=== PATIENT | female | born 1990 | race Caucasian/White ===

== ENCOUNTER 2020-11-24 08:56 | Inpatient (IN) ==
--- NOTE | 2020-11-24 09:53 | Emergency Department Note ---
Impression & Plan Anxiety, PTSD (post-traumatic stress disorder) ED Provider Note NAME: AL LUNDBERG AGE: 30 SEX: F : 1990 ARRIVES VIA: Walk-In INFORMANT: Patient, ED PROVIDER(S): Anton Garcia DO CHIEF COMPLAINT: Anxiety HPI: The patient is a 30-year-old female who presented to the emergency department for an evaluation of generalized anxiety. The patient has very severe anxiety at times. She was seen in our facility recently for similar complaints. She has a history of PTSD. Initially she presented to the emergency department thinking that she had a reaction to one of her antidepression medications. The patient was stopped on her medications and at this time she is not taking any of her medications. She was feeling much better on reevaluation previously. She was able to be discharged to home I did not require inpatient treatment. She returns today because at her follow-up with the crisis center she was very anxious and was not able to participate in any kind of evaluation. They were very concerned for her mental health and her wellbeing so she was sent to the emergency department for further evaluation. At this time the patient states that she has had very little sleep. She has had very severe anxiety. She is noticed no suicidal or homicidal ideation. ROS: See above HPI for pertinent positives & negatives. A total of 10 systems reviewed and were otherwise negative. PAST MEDICAL HISTORY: See Below PAST SURGICAL HISTORY: See Below FAMILY HISTORY: See Below SOCIAL HISTORY: See Below HOME MEDICATIONS: See Below ALLERGIES: See Below VITALS: See Below PHYSICAL EXAMINATION: GENERAL: The patient is awake and alert. She is very anxious and guarded appearing. EYES: The conjunctivae are clear. The pupils are round and reactive. EARS, NOSE, MOUTH AND THROAT: The nose is without any evidence of any deformity. Mucous membranes are moist. Tongue is midline. NECK: The neck is nontender and supple. RESPIRATORY: Normal respiratory effort is noted there is no evidence of wheezing rhonchi or rales CARDIOVASCULAR: Regular rate and rhythm noted there no murmurs rubs or gallops normal S1 normal S2. GASTROINTESTINAL: The abdomen is soft. Abdomen is nontender. MUSCULOSKELETAL/EXTREMITIES: There is no evidence of gross deformity full range of motion is noted in the hips and shoulders. SKIN: There is no obvious evidence of any rash. There are no petechiae, pallor or cyanosis noted. NEUROLOGIC: Patient is awake alert and oriented x3 strength is symmetric patellar reflexes are 2+ bilaterally PSYCH: The patient makes very poor eye contact. She is very guarded and an xious. Currently she is denying any suicidal homicidal ideation. MEDICAL DECISION MAKING: The patient is a 30-year-old female who presented to the emergency department from the crisis center because she could not be properly evaluated there for her anxiety. The patient at this time has no suicidal homicidal ideation. She was medically cleared in the emergency department and at this time does not appear to meet criteria for inpatient treatment. The patient was evaluated by the mental health case management rn in the emergency department. She is feeling much better on reevaluation and has family members who will be with her. She was encouraged to follow-up with her therapist as scheduled. She was also encouraged to call crisis again or return the emergency department immediately if symptoms change worsen or the need arises. Once the patient was evaluated for discharge further history is obtained from the patient's friends. The patient has had much worsening symptoms over the last few days. When she was reevaluated by the mental health delegate it does appear that patient may benefit from inpatient management. Her anxiety appears to be very severe at times. Her friends are very concerned that she is not safe at home. For this reason a bed search is currently underway. Triage Nursing notes reviewed. Prior medical records reviewed Vital Signs: reviewed and remarkable for no significant abnormalities Differential diagnosis: Mood disorder, infection, hypoglycemia, electrolyte abnormalities, cardiac sources, intracerebral event, toxicologic, trauma, neurologic, as well as other pathologies. ER treatment provided: See below Diagnostics interpreted by me: ECG: none Laboratory studies: As stated above and show below. Imaging studies: See below Consultation(s): none Past Med/Surg History Medical History Anxiety Depression PTSD (post-traumatic stress disorder) Surgical History No significant past surgical history Social History Smoking Status: Never smoker Preferred Language: Serbian marital status: Single current occupational status: student Feels Safe at Home: Yes Allergies Allergies Allergy/AdvReac Type Severity Reaction Status Date / Time erythromycin base Allergy Unknown Verified 11/19/20 10:52 [From Pediazole] sulfisoxazole Allergy Unknown Verified 11/19/20 10:52 [From Pediazole] morphine AdvReac Nausea Verified 11/19/20 10:52 Home Meds Home Medications Medication Instructions Recorded Confirmed No Known Home Medications 11/24/20 11/24/20 Results & Data (ED) Vital Signs Vital Signs - 24 hr 11/24/20 09:02 Temperature 36.6 C Temperature Source Temporal Artery Scan Pulse Rate 86 Respiratory Rate 16 Blood Pressure 138/72 Blood Pressure Mean 94 Pulse Oximetry 97 Oxygen Delivery Method Room Air Sepsis Recent Fever Within 48 Hours No Sepsis New/Unexplained Change in Mental Status No Sepsis Action Taken by Nursing No Action Required Home Medications Current Medication List: was personally reviewed by me Laboratory Data Attestation: I reviewed the patient's lab results. Result diagrams: 11/24/20 09:49 11/24/20 09:49 Lab Results 11/24/20 11/24/20 11/24/20 Range/Units 09:49 09:49 09:49 WBC 6.38 (4.8-10.8) K/uL RBC 4.56 (4.2-5.4) M/uL Hgb 14.1 (12.0-16.0) g/dL Hct 40.6 (37-47) % MCV 89.0 (80-100) fL MCH 30.9 (25-34) pg MCHC 34.7 (32-36) g/dL RDW Std Deviation 39.5 (36.4-46.3) fL RDW Coeff of Daniel 12.3 (11.5-14.5) % Plt Count 253 (130-400) K/uL MPV 9.8 (7.4-10.4) fL Immature Gran % (Auto) 0.2 % Neut % (Auto) 70.7 % Lymph % (Auto) 21.5 % Woods % (Auto) 5.2 % Eos % (Auto) 2.4 % Baso % (Auto) 0.0 % Neut # (Auto) 4.52 (1.4-6.5) K/uL Lymph # (Auto) 1.37 (1.2-3.4) K/uL Woods # (Auto) 0.33 (0.11-0.59) K/uL Eos # (Auto) 0.15 (0-0.5) K/uL Baso # (Auto) 0.00 (0-0.2) K/uL Immature Gran # (Auto) 0.01 (0.00-0.02) K/uL Sodium 139 (136-145) mmol/L Potassium 3.1 L (3.5-5.1) mmol/L Chloride 105 (98-107) mmol/L Carbon Dioxide 25 (21-32) mmol/L Anion Gap 9.0 (3-11) BUN 5 L (7-18) mg/dl Creatinine 0.56 L (0.6-1.2) mg/dl Est Cr Clr Drug Dosing 131.9 ml/min Est GFR ( Amer) 145.0 Est GFR (Non-Af Amer) 125.1 BUN/Creatinine Ratio 9.3 L (10-20) Glucose 104 H (70-99) mg/dl Calcium 9.2 (8.5-10.1) mg/dl Total Bilirubin 0.8 (0.2-1) mg/dl AST 7 L (15-37) U/L ALT 18 (12-78) U/L Alkaline Phosphatase 35 L (45-117) U/L Total Protein 8.0 (6.4-8.2) gm/dl Albumin 4.6 (3.4-5.0) gm/dl Globulin 3.4 (2.5-4.0) gm/dl Albumin/Globulin Ratio 1.4 (0.9-2) TSH 0.438 (0.300-4.500) uIu/ml HCG, Qual (Negative) Urine Color Urine Appearance (Clear) Urine pH (4.5-7.5) Ur Specific [place] (1.000-1.030) Urine Protein (Negative) Urine Glucose (UA) (Negative) Urine Ketones (Negative) Urine Blood (Negative) Urine Nitrite (Negative) Urine Bilirubin (Negative) Urine Urobilinogen (Negative) Ur Leukocyte Esterase (Negative) Urine WBC (Auto) (0-5) /hpf Urine RBC (Auto) (0-4) /hpf U Hyaline Cast (Auto) (0-5) /lpf U Epithel Cells (Auto) (0-5) /lpf Urine Bacteria (Auto) (Negative) Salicylates < 1.7 L (2.8-20) mg/dl Urine Opiates Screen (Neg) Ur Methadone, Qual (Neg) Acetaminophen < 2 L (10-30) ug/ml Urine Barbiturates (Neg) Ur Phencyclidine (PCP) (Neg) U Amphetamin/Meth Scrn (Neg) MDMA (Ecstasy) Screen (Neg) U Benzodiazepines Scrn (Neg) Ur Cocaine Metabolite (Neg) U Marijuana (THC) Screen (Neg) Ethyl Alcohol mg/dL (0-3) mg/dl COVID-19 Eval Order SARS-CoV-2, RNA, NAAT (NEGATIVE) 11/24/20 11/24/20 11/24/20 Range/Units 09:49 09:49 11:05 WBC (4.8-10.8) K/uL RBC (4.2-5.4) M/uL Hgb (12.0-16.0) g/dL Hct (37-47) % MCV (80-100) fL MCH (25-34) pg MCHC (32-36) g/dL RDW Std Deviation (36.4-46.3) fL RDW Coeff of Daniel (11.5-14.5) % Plt Count (130-400) K/uL MPV (7.4-10.4) fL Immature Gran % (Auto) % Neut % (Auto) % Lymph % (Auto) % Woods % (Auto) % Eos % (Auto) % Baso % (Auto) % Neut # (Auto) (1.4-6.5) K/uL Lymph # (Auto) (1.2-3.4) K/uL Woods # (Auto) (0.11-0.59) K/uL Eos # (Auto) (0-0.5) K/uL Baso # (Auto) (0-0.2) K/uL Immature Gran # (Auto) (0.00-0.02) K/uL Sodium (136-145) mmol/L Potassium (3.5-5.1) mmol/L Chloride (98-107) mmol/L Carbon Dioxide (21-32) mmol/L Anion Gap (3-11) BUN (7-18) mg/dl Creatinine (0.6-1.2) mg/dl Est Cr Clr Drug Dosing ml/min Est GFR ( Amer) Est GFR (Non-Af Amer) BUN/Creatinine Ratio (10-20) Glucose (70-99) mg/dl Calcium (8.5-10.1) mg/dl Total Bilirubin (0.2-1) mg/dl AST (15-37) U/L ALT (12-78) U/L Alkaline Phosphatase (45-117) U/L Total Protein (6.4-8.2) gm/dl Albumin (3.4-5.0) gm/dl Globulin (2.5-4.0) gm/dl Albumin/Globulin Ratio (0.9-2) TSH (0.300-4.500) uIu/ml HCG, Qual Negative (Negative) Urine Color Yellow Urine Appearance Clear (Clear) Urine pH 7.5 (4.5-7.5) Ur Specific [place] 1.011 (1.000-1.030) Urine Protein Negative (Negative) Urine Glucose (UA) Negative (Negative) Urine Ketones 1+ H (Negative) Urine Blood Trace H (Negative) Urine Nitrite Negative (Negative) Urine Bilirubin Negative (Negative) Urine Urobilinogen Negative (Negative) Ur Leukocyte Esterase 3+ H (Negative) Urine WBC (Auto) 5-10 H (0-5) /hpf Urine RBC (Auto) 10-30 H (0-4) /hpf U Hyaline Cast (Auto) 1-5 (0-5) /lpf U Epithel Cells (Auto) >30 H (0-5) /lpf Urine Bacteria (Auto) Negative (Negative) Salicylates (2.8-20) mg/dl Urine Opiates Screen (Neg) Ur Methadone, Qual (Neg) Acetaminophen (10-30) ug/ml Urine Barbiturates (Neg) Ur Phencyclidine (PCP) (Neg) U Amphetamin/Meth Scrn (Neg) MDMA (Ecstasy) Screen (Neg) U Benzodiazepines Scrn (Neg) Ur Cocaine Metabolite (Neg) U Marijuana (THC) Screen (Neg) Ethyl Alcohol mg/dL < 3.0 (0-3) mg/dl COVID-19 Eval Order SARS-CoV-2, RNA, NAAT (NEGATIVE) 11/24/20 11/24/20 11/24/20 Range/Units 11:05 12:57 12:57 WBC (4.8-10.8) K/uL RBC (4.2-5.4) M/uL Hgb (12.0-16.0) g/dL Hct (37-47) % MCV (80-100) fL MCH (25-34) pg MCHC (32-36) g/dL RDW Std Deviation (36.4-46.3) fL RDW Coeff of Daniel (11.5-14.5) % Plt Count (130-400) K/uL MPV (7.4-10.4) fL Immature Gran % (Auto) % Neut % (Auto) % Lymph % (Auto) % Woods % (Auto) % Eos % (Auto) % Baso % (Auto) % Neut # (Auto) (1.4-6.5) K/uL Lymph # (Auto) (1.2-3.4) K/uL Woods # (Auto) (0.11-0.59) K/uL Eos # (Auto) (0-0.5) K/uL Baso # (Auto) (0-0.2) K/uL Immature Gran # (Auto) (0.00-0.02) K/uL Sodium (136-145) mmol/L Potassium (3.5-5.1) mmol/L Chloride (98-107) mmol/L Carbon Dioxide (21-32) mmol/L Anion Gap (3-11) BUN (7-18) mg/dl Creatinine (0.6-1.2) mg/dl Est Cr Clr Drug Dosing ml/min Est GFR ( Amer) Est GFR (Non-Af Amer) BUN/Creatinine Ratio (10-20) Glucose (70-99) mg/dl Calcium (8.5-10.1) mg/dl Total Bilirubin (0.2-1) mg/dl AST (15-37) U/L ALT (12-78) U/L Alkaline Phosphatase (45-117) U/L Total Protein (6.4-8.2) gm/dl Albumin (3.4-5.0) gm/dl Globulin (2.5-4.0) gm/dl Albumin/Globulin Ratio (0.9-2) TSH (0.300-4.500) uIu/ml HCG, Qual (Negative) Urine Color Urine Appearance (Clear) Urine pH (4.5-7.5) Ur Specific [place] (1.000-1.030) Urine Protein (Negative) Urine Glucose (UA) (Negative) Urine Ketones (Negative) Urine Blood (Negative) Urine Nitrite (Negative) Urine Bilirubin (Negative) Urine Urobilinogen (Negative) Ur Leukocyte Esterase (Negative) Urine WBC (Auto) (0-5) /hpf Urine RBC (Auto) (0-4) /hpf U Hyaline Cast (Auto) (0-5) /lpf U Epithel Cells (Auto) (0-5) /lpf Urine Bacteria (Auto) (Negative) Salicylates (2.8-20) mg/dl Urine Opiates Screen Neg (Neg) Ur Methadone, Qual Neg (Neg) Acetaminophen (10-30) ug/ml Urine Barbiturates Neg (Neg) Ur Phencyclidine (PCP) Neg (Neg) U Amphetamin/Meth Scrn Neg (Neg) MDMA (Ecstasy) Screen Neg (Neg) U Benzodiazepines Scrn Neg (Neg) Ur Cocaine Metabolite Neg (Neg) U Marijuana (THC) Screen Neg (Neg) Ethyl Alcohol mg/dL (0-3) mg/dl COVID-19 Eval [facility] SARS-CoV-2, RNA, NAAT NEGATIVE (NEGATIVE) Blood Pressure Blood Pressure Findings: Normal blood pressure Discharge Plan Visit Data Chief Complaint: Mental Health Evaluation Stated Complaint: MENTAL HEALTH EMERGENCY ED Provider: Anton Garcai Discharge Problem: Anxiety, PTSD (post-traumatic stress disorder) Patient Disposition: Home - Self-Care Condition: Good Discharge Instructions Esteban/Other Patient Handouts: ED Anxiety Reaction Activity Restrictions/Additional Instructions: Follow-up with your therapist as scheduled. Call crisis or return to the emergency department immediately if symptoms change worsen or the need arises. Forms Stand Alone Forms: My [facility] [place] [employer], Suicide Prevention Resources, Virtual Emergency Department, Important Visit Information Prescriptions Prescriptions: No Action No Known Home Medications RF: 0 Referrals [facility]: [facility] [Primary Care Provider] -
[2020-11-24 10:32] LABS: Eosinophils # (auto) 0.15 K/uL (0-0.5); Eosinophils % (auto) 2.4 %; Hematocrit (blood only) 40.6 % (37-47); Hemoglobin 14.1 g/dL (12.0-16.0); Immature Granulocytes # (auto) 0.01 K/uL (0.00-0.02); Immature Granulocytes % (auto) 0.2 %; Lymphocytes # (auto) 1.37 K/uL (1.2-3.4); Lymphocytes % (auto) 21.5 %; Mean Corpuscular Hemoglobin 30.9 pg (25-34); Mean Corpuscular Hgb Conc 34.7 g/dL (32-36); Mean Platelet Volume 9.8 fL (7.4-10.4); Monocytes # (auto) 0.33 K/uL (0.11-0.59); Monocytes % (auto) 5.2 %; Neutrophils # (auto) 4.52 K/uL (1.4-6.5); Neutrophils % (auto) 70.7 %; Platelet Count 253 K/uL (130-400); RDW Coefficient of Variation 12.3 % (11.5-14.5); RDW Standard Deviation 39.5 fL (36.4-46.3); Red Blood Count 4.56 M/uL (4.2-5.4); White Blood Count 6.38 K/uL (4.8-10.8)
[2020-11-24 10:49] LABS: Albumin Level 4.6 gm/dl (3.4-5.0); BUN Creatinine Ratio 9.3 (10-20); Calcium 9.2 mg/dl (8.5-10.1); Creatinine Clr Calc Pharmacy 131.9 ml/min; Est GFR (Non-African American) 125.1; Potassium 3.1 mmol/L (3.5-5.1)
[2020-11-24 10:53] LABS: Pregnancy Test, Serum Negative (Negative)
[2020-11-24 10:54] LABS: Acetaminophen < 2 ug/ml (10-30); Salicylate < 1.7 mg/dl (2.8-20)
[2020-11-24 10:57] LABS: Albumin Globulin Ratio 1.4 (0.9-2); Bilirubin,Total 0.8 mg/dl (0.2-1); Globulin 3.4 gm/dl (2.5-4.0); Thyroid Stimulating Hormone 0.438 uIu/ml (0.300-4.500)
[2020-11-24 11:18] LABS: Appearance Urine Clear (Clear); Bacteria Urine Automated Negative (Negative); Bilirubin Urine Negative (Negative); Blood Urine Trace (Negative); Color Urine Yellow; Epithelial Cell Urine Auto >30 /lpf (0-5); Glucose Urine UA Negative (Negative); Ketones Urine 1+ (Negative); Leukocyte Esterase Urine 3+ (Negative); Nitrite Urine Negative (Negative); Protein Urine Negative (Negative); Specific Gravity Urine 1.011 (1.000-1.030); Urobilinogen Urine Negative (Negative); pH Urine 7.5 (4.5-7.5)
[2020-11-24 11:45] LABS: Amphetamines+Metham, Urine Neg (Neg); Barbiturates, Urine Neg (Neg); Benzodiazepine, Urine Neg (Neg); Cocaine, Urine Neg (Neg); MDMA (Ecstacy), Urine Neg (Neg); Methadone, Urine Neg (Neg); Opiate, Urine Neg (Neg); Phencyclidine, Urine Neg (Neg)
[2020-11-24] MEDS ORDERED: POTASSIUM CHLORIDE CRTAB 20 MEQ TABCR PO STA (14:03)
[2020-11-24] MEDS ORDERED: ALUMINUM/MAGNESIUM SUSP 30 ML UDC PO PRN ×2 (15:04→15:20)
[2020-11-24] MEDS ORDERED: SODIUM CHLORIDE 0.65% NA SOLN 45 ML (OCEAN) PRN ×2 (15:04→15:20)
[2020-11-24] MEDS ORDERED: MAGNESIUM HYDROXIDE SUSP 30 ML UDC PO PRN ×2 (15:04→15:20)
[2020-11-24] MEDS ORDERED: hydrOXYzine HCl 25 MG TAB PO PRN ×3 (15:04→15:20)
[2020-11-24] MEDS ORDERED: ACETAMINOPHEN 325 MG TAB PO PRN ×2 (15:04→15:20)
[2020-11-24] MEDS ORDERED: BISMUTH SUBSALICYLATE LIQD 236 ML PO PRN ×2 (15:04→15:20)
--- NOTE | 2020-11-24 15:23 | Emergency Department Note ---
ED Visit Note Received patient in signout. History and physical verified by me. Patient has been accepted to [address] signed. .
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
[2020-11-25] MEDS: hydrOXYzine HCl 25 MG TAB PO PRN ×2 (03:46→04:35)
--- NOTE | 2020-11-25 13:19 | Psychiatric Progress Note ---
Date of Service November 25, 2020 Impression / Recommendations Impression 30-year-old biologically female individual who identifies as non-binary and prefers 'they/they/their' pronouns. They were admitted voluntarily for inpatient psychiatric treatment on 11/24/2020 after presenting to the ED for the third time in 7-days for reports of worsening anxiety and inability to function. Pt had reportedly been to the [facility] for a follow-up crisis appointment, but when unable to tolerate the assessment due to severe anxiety they were referred to the ED for possible admission. Friends have reported concern for the patient's worsening symptoms and patient was ultimately willing for admission to our unit. The patient states that they were prescribed escitalopram ~2015, stated they had a positive response in the ED but is now stating they are uncertain how they responded. Nonetheless, the patient states they do not want to retry medication during this admission. Pt is felt to be too anxious to engage in psychoeducation on this at this time, but will continue to encourage considerat ion for an SSRI. Pt will be encouraged to participate in group and recreational programming. They will be encouraged to have a support meeting via phone to discuss safety and discharge planning. Pt is considered to be at acute risk of harm to self if discharged prematurely, as their presentation suggests they are not able to tolerate the stress of community re-entry. 11/25--reviewed. Today the patient exhibits thought blocking, disorganized behavior on unit, and expresses multiple delusions including body control, persecutory delusions of poison, etc. (1) Anxiety: 11/24 - Admitted to a locked inpatient behavioral health unit, on q15 minute safety checks - Pt is declining trial of any psychotropic medications during this admission - will continue to offer education and encouragement - Encourage participation in group and recreational therapies - Gather collateral information from outpatient providers - Suggest phone meeting to involve outpatient supports in safety planning - Arrange appropriate aftercare 11/25--reviewed, is actually related to underlying psychosis/paranoia. (2) Depression: 11/24 - Same as above; patient declining medications during her admission - Encourage participation in group and recreational programming - Encourage support meeting - likely with brother 11/25--reviewed. may need to delay d/c to brother as ongoing decompensation. (3) PTSD (post-traumatic stress disorder): 11/24 - Coping strategies at this time - though continue to encourage consideration of medications - Encourage continued outpatient therapy 11/25--reviewed, Reviewed with patient that this is beyond dissociation as they do not just believe that things are unreal, but list multiple unusual beliefs and things that are harmful to them as punishment for losing healing mcnair. (4) Hypokalemia: 11/24 - Potassium was 3.1 in the ED, repleted with 20mEq of potassium chloride - Monitor nutritional intake on the unit, consider repeat BMP if indicated 11/25--reviewed. (5) Psychotic disorder: Risks/benefits/alternatives reviewed re: Seroquel 50 mg po q6 hr prn and decide on hs dose depending on tolerability. They were really not able to process full consent at this time. Will address as status improved. They verbalized agreement to trial. metabolic labs in am. Protective Factors Assessment Employed: No Interval History Chief Complaint "It's hard for me to say it out loud as I'm pretty sure I'm being poisoned and watched". Review of Systems Sleep Information Total Hours of Sleep: 1.5 Meal Information Percent Meal Consumed - Breakfast: 50 Percent Meal Consumed - Dinner: 100 Subjective Subjective Patient was seen & assessed and interval progress reviewed with nursing and social work. Patient has been rather guarded. Will wander and shuffle around, perceived to be in an attention seeking manner. At one point early this am when couldn't sleep they lay on the ottoman in the day room and had some jerking movements of hands/neck for <10 sec that did not appear to be related to seizure activity. Is flat, had difficulty completing sw assessment as seemed confused by number of pens. They initially attributed her confusion to Vistaril last hs and/or their "nightmarish dissociation". They stated that they have times they feel this hospital is not real and that they and staff are being controlled by an outside force. Sometimes they would refer to eastern religions and their own healing mcnair while repeatedly looking down at their arms. They denied urge to self injure, stated they were being punished or poisoned for using their mcnair for bad but could not elaborate on that. They stated that they believe that someone is inside them seeing things out of their eyes, probably the ALDEN and that's why their apartment is "under construction". They described upstairs and downstairs construction work causing poisonous gas and asbestos to go in through the vent in their apartment. They stated that they've carried this anxiety for weeks but didn't tell anyone as they didn't think they'd believe them. Again when asked about the "they" who are poisoning them they mentioned the ALDEN and then also mentioned that it's likely the medication they took for anxiety was poison. They stated that the hospital is overstimulating for them as so many "staff to track" and they are suspicious as to why some of the staff change their nametags around/backward as if they are also being controlled. Initially they were resistant to medication but recognizes that "things are only getting worse" with lack of sleep and they requested to be "put out" (to sleep, not SI). Physical Exam Psychiatric Orientation: alert Apperance: + disheveled Eye Contact: + poor eye contact Motor Behavior: + psychomotor retardation and + tremor (hand when looking directly at them) Speech: normal rate/rhythm/volume of speech Affect: + depressed affect and + tearful affect Mood: + anxious mood Thought Process: + tangential thought process Thought Content: + paranoid, + delusions and + persecution Suicidal Thoughts: denies suicidal thoughts Homicidal Thoughts: denies homicidal thoughts Hallucinations: no auditory hallucinations and no visual hallucinations Cognition: + attention not intact Estimated Intelligence: consistent with education level Insight: + poor insight Judgement: + poor judgement Vital Signs (Past 24 Hours) Last Vital Signs Temp 36.9 C 11/25/20 06:34 Pulse 75 11/25/20 11:12 Resp 20 11/25/20 11:12 BP 118/82 11/25/20 11:12 Pulse Ox 96 11/25/20 11:12 Results & Data ([facility]) Laboratory Results Laboratory Results - last 24 hr 11/24/20 11/24/20 12:57 12:57 COVID-19 Eval Order Covid19 IDNow [facility] SARS-CoV-2, RNA, NAAT NEGATIVE Current Inpatient Medications Current Inpatient Medications: Current Inpatient Medications Acetaminophen (Acetaminophen 325 Mg Tab) 650 mg PO Q4H PRN PRN Reason: Headache or Minor Fever Stop: 12/24/20 15:19 Al Hydrox/Mg Hydrox/Simethicone (Aluminum/Magnesium Susp 30 Ml Udc) 30 ml PO Q4H PRN PRN Reason: GI Upset Stop: 12/24/20 15:19 Bismuth Subsalicylate (Bismuth Subsalicylate Liqd 236 Ml) 15 ml PO PRN PRN PRN Reason: Loose Stool Stop: 12/24/20 15:19 Magnesium Hydroxide (Magnesium Hydroxide Susp 30 Ml Udc) 30 ml PO DAILY PRN PRN Reason: Constipation Stop: 12/24/20 15:19 Quetiapine Fumarate (Quetiapine Fumarate 25 Mg Tablet) 50 mg PO Q6 PRN PRN Reason: Anxiety/Insomnia Stop: 12/25/20 17:59 Sodium Chloride (Sodium Chloride 0.65% Na Soln 45 Ml ([place])) 1 - 2 sprays NA PRN PRN PRN Reason: Nasal Dryness/Congestion Stop: 12/24/20 15:19 Mental Health & Subst Abuse Tx Therapist Name of Therapist: Natalia العلي @[facility] - had one appointment with this provider Post Discharge Appointments Primary Care Physician Name Of Family Doctor: Florentino Negrete @[facility] (missed this appt. as pt. came to the hospital today)
[2020-11-25] MEDS: QUEtiapine FUMARATE 25 MG TABLET PO PRN ×2 (14:08→21:08)
[2020-11-26 09:15] LABS: Potassium 3.6 mmol/L (3.5-5.1)
--- NOTE | 2020-11-26 14:25 | Psychiatric Progress Note ---
Date of Service November 26, 2020 Impression / Recommendations Impression 30-year-old biologically female individual who identifies as non-binary and prefers 'they/they/their' pronouns. They were admitted voluntarily for inpatient psychiatric treatment on 11/24/2020 after presenting to the ED for the third time in 7-days for reports of worsening anxiety and inability to function. Pt had reportedly been to the [facility] for a follow-up crisis appointment, but when unable to tolerate the assessment due to severe anxiety they were referred to the ED for possible admission. Friends have reported concern for the patient's worsening symptoms and patient was ultimately willing for admission to our unit. The patient states that they were prescribed escitalopram ~2015, stated they had a positive response in the ED but is now stating they are uncertain how they responded. Nonetheless, the patient states they do not want to retry medication during this admission. Pt is felt to be too anxious to engage in psychoeducation on this at this time, but will continue to encourage considerat ion for an SSRI. Pt will be encouraged to participate in group and recreational programming. They will be encouraged to have a support meeting via phone to discuss safety and discharge planning. Pt is considered to be at acute risk of harm to self if discharged prematurely, as their presentation suggests they are not able to tolerate the stress of community re-entry. 11/25--reviewed. Today the patient exhibits thought blocking, disorganized behavior on unit, and expresses multiple delusions including body control, persecutory delusions of poison, etc. 11/26--a bit calmer following 2 doses of Seroquel yesterday, still suspicious and misattributes paperwork and menu to delusional system. (1) Anxiety: 11/24 - Admitted to a locked inpatient behavioral health unit, on q15 minute safety checks - Pt is declining trial of any psychotropic medications during this admission - will continue to offer education and encouragement - Encourage participation in group and recreational therapies - Gather collateral information from outpatient providers - Suggest phone meeting to involve outpatient supports in safety planning - Arrange appropriate aftercare 11/25--reviewed, is actually related to underlying psychosis/paranoia. (2) Depression: 11/24 - Same as above; patient declining medications during her admission - Encourage participation in group and recreational programming - Encourage support meeting - likely with brother 11/25--reviewed. may need to delay d/c to brother as ongoing decompensation. (3) PTSD (post-traumatic stress disorder): 11/24 - Coping strategies at this time - though continue to encourage consideration of medications - Encourage continued outpatient therapy 11/25--reviewed, Reviewed with patient that this is beyond dissociation as they do not just believe that things are unreal, but list multiple unusual beliefs and things that are harmful to them as punishment for losing healing mcnair. (4) Hypokalemia: 11/24 - Potassium was 3.1 in the ED, repleted with 20mEq of potassium chloride - Monitor nutritional intake on the unit, consider repeat BMP if indicated 11/25--reviewed. 11/26--repeat 3.6. (5) Psychotic disorder: 11/25--Risks/benefits/alternatives reviewed re: Seroquel 50 mg po q6 hr prn and decide on hs dose depending on tolerability. They were really not able to process full consent at this time. Will address as status improved. They verbalized agreement to trial. metabolic labs in am. 11/26--agreed to increase Seroquel 100 mg po qhs. Protective Factors Assessment Employed: No Interval History Chief Complaint "I shouldn't have told you all that stuff, now my menu is changed.". Review of Systems Sleep Information Total Hours of Sleep: 3.5 Meal Information Percent Meal Consumed - Breakfast: 100 Percent Meal Consumed - Lunch: 75 Percent Meal Consumed - Dinner: 50 Subjective Subjective Patient was seen & assessed and interval progress reviewed with nursing and social work. Patient states they slept "a bit" and feel anxious yet on some level calmer today as know brother is on his way. Still unable to fill out simple forms like rec assessment due to disorganization and blocking. Had to leave group due to ?paranoia. Very upset that her vegetarian menu is different than yesterday so they believe it's a punishment. Physical Exam Psychiatric Orientation: alert and oriented x 3 Apperance: appropriately dressed and appropriately groomed Eye Contact: + fair eye contact (frequently closing eyes to conduct deep breathing exercises) Motor Behavior: steady gait and station Speech: normal rate/rhythm/volume of speech Affect: + depressed affect and + anxious affect Mood: + anxious mood Thought Process: + tangential thought process Thought Content: + paranoid and + delusions Suicidal Thoughts: denies suicidal thoughts Homicidal Thoughts: denies homicidal thoughts Hallucinations: no auditory hallucinations and no visual hallucinations Cognition: language grossly intact; + attention not intact Estimated Intelligence: consistent with education level and + above average estimated intelligence Insight: + impaired insight Judgement: + impaired judgement Vital Signs (Past 24 Hours) Last Vital Signs Temp 36.7 C 11/26/20 06:39 Pulse 114 H 11/26/20 06:39 Resp 16 11/26/20 06:39 BP 124/83 11/26/20 06:39 Pulse Ox 96 11/25/20 11:12 Results & Data ([facility]) Laboratory Results Laboratory Results - last 24 hr 11/26/20 08:21 Potassium 3.6 D Fasting Glucose 101 H Triglycerides 42 Cholesterol 153 LDL Cholesterol, Calc 87 VLDL Cholesterol, Calc 8 HDL Cholesterol 58 Cholesterol/HDL Ratio 3 Current Inpatient Medications Current Inpatient Medications: Current Inpatient Medications Acetaminophen (Acetaminophen 325 Mg Tab) 650 mg PO Q4H PRN PRN Reason: Headache or Minor Fever Stop: 12/24/20 15:19 Al Hydrox/Mg Hydrox/Simethicone (Aluminum/Magnesium Susp 30 Ml Udc) 30 ml PO Q4H PRN PRN Reason: GI Upset Stop: 12/24/20 15:19 Bismuth Subsalicylate (Bismuth Subsalicylate Liqd 236 Ml) 15 ml PO PRN PRN PRN Reason: Loose Stool Stop: 12/24/20 15:19 Magnesium Hydroxide (Magnesium Hydroxide Susp 30 Ml Udc) 30 ml PO DAILY PRN PRN Reason: Constipation Stop: 12/24/20 15:19 Quetiapine Fumarate (Quetiapine Fumarate 25 Mg Tablet) 50 mg PO Q6 PRN PRN Reason: Anxiety/Insomnia Stop: 12/25/20 17:59 Last Admin: 11/25/20 21:08 Dose: 50 mg Documented by: Quetiapine Fumarate (Quetiapine Fumarate 100 Mg Tablet) 100 mg PO HS VENICE Stop: 12/26/20 21:59 Sodium Chloride (Sodium Chloride 0.65% Na Soln 45 Ml ([place])) 1 - 2 sprays NA PRN PRN PRN Reason: Nasal Dryness/Congestion Stop: 12/24/20 15:19 Mental Health & Subst Abuse Tx Therapist Name of Therapist: Natalia Vences Post Discharge Appointments Primary Care Physician Name Of Family Doctor: Florentino Negrete @[facility] (missed this appt. as pt. came to the hospital today)
[2020-11-26] MEDS ORDERED: INFLUENZA VIRUS QUAD VACCINE 0.5 ML SYR IM ONE (14:26)
[2020-11-26] MEDS ORDERED: INFLUENZA ADMINISTRATION CHARGE ONE (14:26)
[2020-11-26] MEDS: QUEtiapine FUMARATE 100 MG TABLET PO SCH (20:35)
--- NOTE | 2020-11-27 13:08 | Psychiatric Progress Note ---
Date of Service November 27, 2020 Impression / Recommendations Impression 30-year-old biologically female individual who identifies as non-binary and prefers 'they/they/their' pronouns. They were admitted voluntarily for inpatient psychiatric treatment on 11/24/2020 after presenting to the ED for the third time in 7-days for reports of worsening anxiety and inability to function. Pt had reportedly been to the [facility] for a follow-up crisis appointment, but when unable to tolerate the assessment due to severe anxiety they were referred to the ED for possible admission. Friends have reported concern for the patient's worsening symptoms and patient was ultimately willing for admission to our unit. The patient states that they were prescribed escitalopram ~2015, stated they had a positive response in the ED but is now stating they are uncertain how they responded. Nonetheless, the patient states they do not want to retry medication during this admission. Pt is felt to be too anxious to engage in psychoeducation on this at this time, but will continue to encourage considerat ion for an SSRI. Pt will be encouraged to participate in group and recreational programming. They will be encouraged to have a support meeting via phone to discuss safety and discharge planning. Pt is considered to be at acute risk of harm to self if discharged prematurely, as their presentation suggests they are not able to tolerate the stress of community re-entry. 11/25--reviewed. Today the patient exhibits thought blocking, disorganized behavior on unit, and expresses multiple delusions including body control, persecutory delusions of poison, etc. 11/26--a bit calmer following 2 doses of Seroquel yesterday, still suspicious and misattributes paperwork and menu to delusional system. 11/27--dramatic improvement from 11/25. (1) Anxiety: 11/24 - Admitted to a locked inpatient behavioral health unit, on q15 minute safety checks - Pt is declining trial of any psychotropic medications during this admission - will continue to offer education and encouragement - Encourage participation in group and recreational therapies - Gather collateral information from outpatient providers - Suggest phone meeting to involve outpatient supports in safety planning - Arrange appropriate aftercare 11/25--reviewed, is actually related to underlying psychosis/paranoia. (2) Depression: 11/24 - Same as above; patient declining medications during her admission - Encourage participation in group and recreational programming - Encourage support meeting - likely with brother 11/25--reviewed. may need to delay d/c to brother as ongoing decompensation. (3) PTSD (post-traumatic stress disorder): 11/24 - Coping strategies at this time - though continue to encourage consideration of medications - Encourage continued outpatient therapy 11/25--reviewed, Reviewed with patient that this is beyond dissociation as they do not just believe that things are unreal, but list multiple unusual beliefs and things that are harmful to them as punishment for losing healing mcnair. (4) Hypokalemia: 11/24 - Potassium was 3.1 in the ED, repleted with 20mEq of potassium chloride - Monitor nutritional intake on the unit, consider repeat BMP if indicated 11/25--reviewed. 11/26--repeat 3.6. (5) Psychotic disorder: 11/25--Risks/benefits/alternatives reviewed re: Seroquel 50 mg po q6 hr prn and decide on hs dose depending on tolerability. They were really not able to process full consent at this time. Will address as status improved. They verbalized agreement to trial. metabolic labs in am. 11/26--agreed to increase Seroquel 100 mg po qhs. 11/27--continue Seroquel current dose. Patient's psychosis likely mood driven but differential includes first break, fact symptoms worsened on brief SSRI trial may suggest bipolar component. Protective Factors Assessment Employed: No Interval History Chief Complaint "wow I'm really starting to see how messed up my thoughts were.". Review of Systems Sleep Information Total Hours of Sleep: 7.5 Meal Information Percent Meal Consumed - Breakfast: 75 Percent Meal Consumed - Lunch: 75 Percent Meal Consumed - Dinner: 50 Subjective Subjective Patient was seen & assessed and interval progress reviewed with treatment team. They were accepting of medication last pm. They c/o of some sedation but also states their body feels calm for the first time in weeks and that their thoughts are starting to slow down. They are able to attend groups and is able to write in their journal in a more meaningful and organized way. They state that they remembers "everything that's happened" here but clearly has some gaps in being able to verbalize. They remember talking about their delusions about healing and being poisoned but stops short on saying it's not true. They slept through the night for the first time and was up attending to ADLs by 8 am. Physical Exam Psychiatric Orientation: alert Apperance: appropriately groomed Eye Contact: good eye contact Motor Behavior: steady gait and station Speech: normal rate/rhythm/volume of speech Affect: euthymic affect Mood: + anxious mood Thought Process: + circumstantial thought process Thought Content: + delusions Suicidal Thoughts: denies suicidal thoughts Homicidal Thoughts: denies homicidal thoughts Hallucinations: no auditory hallucinations and no visual hallucinations Cognition: attention grossly intact and language grossly intact Insight: + poor insight Judgement: + poor judgement Vital Signs (Past 24 Hours) Last Vital Signs Temp 36.3 C L 11/27/20 06:47 Pulse 97 H 11/27/20 06:47 Resp 16 11/27/20 06:47 BP 129/81 11/27/20 06:47 Pulse Ox 96 11/25/20 11:12 Results & Data ([facility]) Current Inpatient Medications Current Inpatient Medications: Current Inpatient Medications Acetaminophen (Acetaminophen 325 Mg Tab) 650 mg PO Q4H PRN PRN Reason: Headache or Minor Fever Stop: 12/24/20 15:19 Al Hydrox/Mg Hydrox/Simethicone (Aluminum/Magnesium Susp 30 Ml Udc) 30 ml PO Q4H PRN PRN Reason: GI Upset Stop: 12/24/20 15:19 Bismuth Subsalicylate (Bismuth Subsalicylate Liqd 236 Ml) 15 ml PO PRN PRN PRN Reason: Loose Stool Stop: 12/24/20 15:19 Magnesium Hydroxide (Magnesium Hydroxide Susp 30 Ml Udc) 30 ml PO DAILY PRN PRN Reason: Constipation Stop: 12/24/20 15:19 Quetiapine Fumarate (Quetiapine Fumarate 25 Mg Tablet) 50 mg PO Q6 PRN PRN Reason: Anxiety/Insomnia Stop: 12/25/20 17:59 Last Admin: 11/25/20 21:08 Dose: 50 mg Documented by: Quetiapine Fumarate (Quetiapine Fumarate 100 Mg Tablet) 100 mg PO HS VENICE Stop: 12/26/20 21:59 Last Admin: 11/26/20 20:35 Dose: 100 mg Documented by: Sodium Chloride (Sodium Chloride 0.65% Na Soln 45 Ml ([place])) 1 - 2 sprays NA PRN PRN PRN Reason: Nasal Dryness/Congestion Stop: 12/24/20 15:19 Mental Health & Subst Abuse Tx Therapist Name of Therapist: [place] - Dr. Natalia العلي Therapist's ext [phone] [facility] App[facility]ment Comment[facility] [address] [facility] [place] [address] Assistant Professor Surgical Technology Name of Assistant Professor Surgical Technology: none Post Discharge Appointments Primary Care Physician Name Of Family Doctor: LSIETTE Negrete Primary Care Provider Appointment Comment: [facility] Contact Information Discharge Discharge Address: [address] [place] [address], [place], [place]
[2020-11-27] MEDS: QUEtiapine FUMARATE 100 MG TABLET PO SCH (22:20)
--- NOTE | 2020-11-28 10:02 | Psychiatric Progress Note ---
Date of Service November 28, 2020 Impression / Recommendations Impression 30-year-old biologically female individual who identifies as non-binary and prefers 'they/they/their' pronouns. They were admitted voluntarily for inpatient psychiatric treatment on 11/24/2020 after presenting to the ED for the third time in 7-days for reports of worsening anxiety and inability to function. Pt had reportedly been to the [facility] for a follow-up crisis appointment, but when unable to tolerate the assessment due to severe anxiety they were referred to the ED for possible admission. Friends have reported concern for the patient's worsening symptoms and patient was ultimately willing for admission to our unit. The patient states that they were prescribed escitalopram ~2015, stated they had a positive response in the ED but is now stating they are uncertain how they responded. Pt initially stated they did not want to retry medication during this admission, but eventually was willing to take as needed dose of quetiapine for what appeared to be more psychotic symptoms earlier in the stay. The patient is tolerating 100mg doses each evening with reported benefit. Anxious presentation is much improved, though still present. Pt does not appear to be grossly psychotic or demonstrating paranoia today. Pt has been willing to participate in group and recreational programming. They had a support meeting via phone with their brother to discuss safety and discharge planning. Pt still requires aftercare arrangements be solidified given the severity of condition on admission and concern for transition to [place]. Pt is hopeful for discharge tomorrow - planning to take a leave of absence from school and live with their brother. (1) Anxiety: 11/24 - Admitted to a locked inpatient behavioral health unit, on q15 minute safety checks - Pt is declining trial of any psychotropic medications during this admission - will continue to offer education and encouragement - Encourage participation in group and recreational therapies - Gather collateral information from outpatient providers - Suggest phone meeting to involve outpatient supports in safety planning - Arrange appropriate aftercare 11/25--reviewed, is actually related to underlying psychosis/paranoia. Today the patient exhibits thought blocking, disorganized behavior on unit, and expresses multiple delusions including body control, persecutory delusions of poison, etc. 11/26--a bit calmer following 2 doses of Seroquel yesterday, still suspicious and misattributes paperwork and menu to delusional system. 11/27--dramatic improvement from 11/25. 11/28--Pt continues to demonstrate improvement in condition. Perspective from this provider is a remarkable improvement in anxiety since our first and only meeting on 11/24. Pt continues to be a bit obsessive with need to write down information, but does not demonstrate paranoia or delusions during our encounter. (2) Depression: 11/24 - Same as above; patient declining medications during her admission - Encourage participation in group and recreational programming - Encourage support meeting - likely with brother 11/25--reviewed. may need to delay d/c to brother as ongoing decompensation. 11/28 - Pt continues to demonstrate significant improvement in mood and anxiety - still requires that aftercare arrangements be made given transition back to [place]. Pt is hopeful for discharge tomorrow. (3) PTSD (post-traumatic stress disorder): 11/24 - Coping strategies at this time - though continue to encourage consideration of medications - Encourage continued outpatient therapy 11/25--reviewed, Reviewed with patient that this is beyond dissociation as they do not just believe that things are unreal, but list multiple unusual beliefs and things that are harmful to them as punishment for losing healing mcnair. (4) Hypokalemia: 11/24 - Potassium was 3.1 in the ED, repleted with 20mEq of potassium chloride - Monitor nutritional intake on the unit, consider repeat BMP if indicated 11/25--reviewed. 11/26--repeat 3.6. (5) Psychotic disorder: 11/25--Risks/benefits/alternatives reviewed re: Seroquel 50 mg po q6 hr prn and decide on hs dose depending on tolerability. They were really not able to process full consent at this time. Will address as status improved. They verbalized agreement to trial. metabolic labs in am. 11/26--agreed to increase Seroquel 100 mg po qhs. 11/27--continue Seroquel current dose. Patient's psychosis likely mood driven but differential includes first break, fact symptoms worsened on brief SSRI trial may suggest bipolar component. 11/28 - Continue quetiapine at current dose of 100mg qHS - patient tolerating medication, but declining further increase. Perspective from this provider is a remarkable improvement in anxiety since our first and only previous meeting on 11/24. Pt continues to be a bit obsessive in her need to write down information, but does not demonstrate paranoia or delusions during our encounter. Protective Factors Assessment Employed: No Interval History Identifying Information AL LUNDBERG is a 30-year-old biologically female individual who identifies as non-binary. Pt prefers "they/them/their" pronouns per report. Pt currently lives in [place] and endorses a history of anxiety, depression, and PTSD, and was admitted on 11/24/2020 on a 201 voluntary commitment for anxiety and inability to function outside of the hospital setting. Chief Complaint "I'm doing much better. I have been able to sleep, which is great." Review of Systems Notes Constitutional: reports an episode of "cold sweats" last evening, now resolved; improved sleep Cardiovascular: denied Respiratory: denied Gastrointestinal: denied Neurological: denied Psychiatric: denies symptoms other than stated above Total of at least 10 systems reviewed, pertinent positives as above and in HPI. Sleep Information Total Hours of Sleep: 6.5 Meal Information Percent Meal Consumed - Breakfast: 90 Percent Meal Consumed - Lunch: 75 Percent Meal Consumed - Dinner: 75 Subjective Subjective Patient was seen & assessed and interval progress reviewed with nursing and social work. Staff report the patient has been participating in group programming. They reportedly had a difficult weekend which included significant demonstration of anxiety, even to the point of paranoia/delusions per documentation and staff report. The patient is more goal directed recently and rated their mood a 7/10 and "relaxed" last evening. Phone meeting with brother was held yesterday and patient is planning to live with him following discharge. The patient was seen today to assess progress since admission. Pt states mood is "much better." They admit that although anxiety is ongoing, it is not a debilitating at this time. Pt confirms plans to remain in [place] for a few days while they pack, with support from brother who has traveled to the area. Pt is unsure how long they will be in [place], but has accepted aftercare referrals in that area. Pt does spend a significant portion of our visit asking questions about their psychiatrist and the office/phone number/address they will be seen at. They also asked to review "all of the medications I've gotten since I've been here." Pt writes down the answers to these question in a journal they have been using. All questions were answered to patient's reported satisfaction. There were no reports of continued paranoia or delusions. Pt is hopeful for discharge tomorrow, realizing therapy appointments will still need arranged. They deny SI and other safety concerns related to the idea of discharge. Pt denied other needs at this time. Physical Exam Psychiatric Orientation: alert, oriented x 3 and cooperative (a bit timid, but pleasant overall) Apperance: appropriately dressed, appropriately groomed and appeared stated age Eye Contact: good eye contact Motor Behavior: steady gait and station and no abnormal motor movements Speech: normal rate/rhythm/volume of speech Affect: + anxious affect (though much improved from initial encounter on 11/24) Mood: + anxious mood (some ongoing anxiety, but does report improvement); no depressed mood ("much better") Thought Process: goal directed thought process and + perseveration Thought Content: reality based without delusions; no hopelessness and no worthlessness Pt does still demonstrate some obsessive tendencies with regard to ensuring information is copied down correctly, though there does not seem to be a paranoid or delusional motive to this. Suicidal Thoughts: denies suicidal thoughts and denies suicidal intent Homicidal Thoughts: denies homicidal thoughts Hallucinations: no auditory hallucinations and no visual hallucinations Cognition: recent memory grossly intact, attention grossly intact and language grossly intact Estimated Intelligence: + above average estimated intelligence Insight: + fair insight Judgement: + fair judgement Vital Signs (Past 24 Hours) Last Vital Signs Temp 36.6 C 11/28/20 06:31 Pulse 96 H 11/28/20 06:31 Resp 16 11/28/20 06:31 BP 110/77 11/28/20 06:31 Pulse Ox 96 11/25/20 11:12 Results & Data ([facility]) Current Inpatient Medications Current Inpatient Medications: Current Inpatient Medications Acetaminophen (Acetaminophen 325 Mg Tab) 650 mg PO Q4H PRN PRN Reason: Headache or Minor Fever Stop: 12/24/20 15:19 Al Hydrox/Mg Hydrox/Simethicone (Aluminum/Magnesium Susp 30 Ml Udc) 30 ml PO Q4H PRN PRN Reason: GI Upset Stop: 12/24/20 15:19 Bismuth Subsalicylate (Bismuth Subsalicylate Liqd 236 Ml) 15 ml PO PRN PRN PRN Reason: Loose Stool Stop: 12/24/20 15:19 Magnesium Hydroxide (Magnesium Hydroxide Susp 30 Ml Udc) 30 ml PO DAILY PRN PRN Reason: Constipation Stop: 12/24/20 15:19 Quetiapine Fumarate (Quetiapine Fumarate 25 Mg Tablet) 50 mg PO Q6 PRN PRN Reason: Anxiety/Insomnia Stop: 12/25/20 17:59 Last Admin: 11/25/20 21:08 Dose: 50 mg Documented by: Quetiapine Fumarate (Quetiapine Fumarate 100 Mg Tablet) 100 mg PO HS VENICE Stop: 12/26/20 21:59 Last Admin: 11/27/20 22:20 Dose: 100 mg Documented by: Sodium Chloride (Sodium Chloride 0.65% Na Soln 45 Ml ([place])) 1 - 2 sprays NA PRN PRN PRN Reason: Nasal Dryness/Congestion Stop: 12/24/20 15:19 Mental Health & Subst Abuse Tx Psychiatrist Name of Psychiatrist: [facility] - Dr. Rosario Psychiatrist's Date of Appointment with Psychiatrist: 12/20/20 Time of Appointment with Psychiatrist: 9:10 a.m. (60 min appt) Psychiatric Appointment Comment: Telehealth - will email you new pt paperwork to complete prior to appt Therapist Name of Therapist: [facility] - Dr. Natalia العلي Therapist's ext [phone] Therapy Appointment Comment: [address], [place] [address] [employer] Name of [employer]cer: none Post Discharge Appointments Primary Care Physician Name Of Family Doctor: LISETTE Negrete Primary Care Provider Appointment Comment: [facility] Contact Information Discharge Discharge Address: [address] [place] [address], [facility], [place], [place]
[2020-11-28] MEDS: QUEtiapine FUMARATE 100 MG TABLET PO SCH (21:25)
--- NOTE | 2020-11-29 08:08 | Discharge Summary ---
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 They presented to the ED for mental health evaluation upon recommendation from the [facility] crisis center where they were seen for follow-up visit but reportedly was too anxious to participate in a productive interview. Although patient denied SI, collateral from friends reportedly suggests the patient's worsening anxiety is significant and they have not been able to function. Friends were reportedly concerned about the patient's well-being and encouraged the patient to consider inpatient psychiatric admission. ED documentation suggests the patient was started on sertraline 25mg on 11/13/20, and had presented to the ED on 11/17/20 with worsening anxiety and concern they were having a reaction to the new medication. Pt has since stopped taking the medication, but states the anxiety continues to worsen. Pt did inform ED staff that they had been prescribed escitalopram several years ago and felt they responded well to that medication. Pt was reported to have missed an appointment today with their PCP through [facility] due to anxiety. Pt is extremely anxious during our conversation - having to begin the assessment to pause to do some deep breathing exercises. Pt was encouraged to take any necessary measures to manage anxiety, and reassured she could take her time with our conversation. The patient states "I have been struggling with PTSD, and depression, and anxiety." Pt states that she was recently willing to start medication to address these concerns and states she began working with a therapist on the same day, only seen for her first appointment. The patient reports that she had "a significant medication reaction to the Zoloft" and noticed abrupt onset of "shortness of breath, headache, nausea, cotton mouth, decreased appetite, diarrhea, and insomnia." Pt claims, "I became delirious on the medication, because I couldn't sleep for several nights." Pt states she came to the ER one week ago today, and then re-presented two days later due to "paranoia" which she describes as "feeling unsafe and fearing for my life." The patient also states that she had noticed more frequent episodes of dissociation. The patient requested that her friends "take shifts" staying with her until her mother flew in from [place] to stay with her. She states "my mother could not be the support I needed, and it made my anxiety worse I think." Pt states she has already requested a leave of absence from her program, which has been approved. Pt is planning to return to [place] with her brother who is coming into town on Friday, and she will be living with him "until I recover." The patient is declining any medications during her admission as "I'm still very traumatized by what happened with the Zoloft." She was made aware of availability of hydroxyzine for anxiety/insomnia as needed, but repeated "I will not be taking any medications while I am here." Pt denied other needs at this time, but was encouraged to reach out to staff as necessary. Physical Exam Psychiatric Orientation: alert and cooperative Apperance: appropriately dressed, appropriately groomed and appeared stated age Eye Contact: good eye contact Motor Behavior: steady gait and station and no abnormal motor movements Speech: normal rate/rhythm/volume of speech Soft-spoken Affect: + anxious affect Mood: + anxious mood (Patient states she is excited about discharge, but also slightly nervous.) Thought Process: goal directed thought process and linear/logical thought process Thought Content: reality based without delusions Suicidal Thoughts: denies suicidal thoughts Homicidal Thoughts: denies homicidal thoughts Hallucinations: no auditory hallucinations and no visual hallucinations Cognition: recent memory grossly intact, attention grossly intact and language grossly intact Estimated Intelligence: consistent with education level Insight: + fair insight Judgement: + fair judgement Vital Signs (Past 24 Hours) Last Vital Signs Temp 36.7 C 11/29/20 06:20 Pulse 87 11/29/20 06:20 Resp 16 11/29/20 06:20 BP 93/62 L 11/29/20 06:20 Pulse Ox 96 11/25/20 11:12 Principal Diagnosis Major depressive disorder, recurrent, severe without psychosis Generalized anxiety disorder PTSD Psychiatric Data The patient was hospitalized for 5 days. On admission, she refused psychotropic medications, but the following day, she agreed to quetiapine, with dramatic improvement over the next 2 days. She was focused on using low doses of medications, citing her history of sensitivity to medications, so quetiapine was titrated only to 100 mg at bedtime. Sleep improved, and she was able to perform ADLs independently. Psychotic symptoms including persecutory delusions, body control, thought blocking, and disorganized behavior all improved. She demonstrated good insight and was able to identify that thinking was not reality based on admission. She was diagnosed with depression with psychosis, with rule out primary thought disorder or bipolar disorder. Her brother was contacted for collateral information and reported he had come to town from [place] to support the patient, and that she would return with him to [place], live with him, and engage in outpatient treatment there. He confirmed no firearms in his home, and denied acute safety concerns. 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 She may be able to complete her thesis r emojemma. She had a family meeting with her brother and the socially responsible investment adviser on 11/28/2020, during which discharge plans and outpatient referrals were reviewed. Day of Discharge Assessment Staff report the patient has been attending and participating in groups and therapy, rated her mood a 6/10, and reported feeling excited but anxious about discharge. She has been interacting appropriately with staff and peers, and utilizing coping skills to manage anxiety. She has been compliant with medications, and consistently denying suicidal thoughts. She has been eating and sleeping well. On my assessment, she states that mood, anxiety, and thoughts have all improved significantly since admission, stating "I was a mess when I first got here. She is able to recall feeling "delirious, exhausted, scared, paranoid, confused," and states she had not slept for weeks and was feeling overwhelmed and unable to function. She reports feeling significantly better, sleep has been good, mood is stable, and although anxiety is still present, it is reduced from admission. She denies paranoia and hallucinations, and denies thoughts of harming herself or anyone else. She is concerned about side effects to medications, stating she is very sensitive to medications, and thinks that she is feeling "groggy" throughout the day as a result of medications, but is agreeable to continue with the Seroquel and give her body a chance to adjust to it. She denies any safety concerns with discharge, and is looking forward to leaving today. She is comfortable with the plan to go stay with her brother in [place] while receiving outpatient treatment there. She would like to process past traumas in therapy when she is more stable. She reports good support from her friend group and brother. Transition of Care Transition Of Care Record: was reviewed with the patient Advance Directives Advance Directives Information Provided: Yes Advance Directives: No Mental Health Advance Directive: No Advance Directives on File: No Living Will: No Power of Precision Thread Grinder Operator: No Advance Directives Reason:: Declines as Mental Health Visit. Risk Factors Assessment Risk factors were mitigated by admission to the inpatient unit, use of medications to target mood and psychotic symptoms, education about diagnosis and treatment recommendations, involving her in groups and therapy, working on healthy coping skills and discharge safety plan, referring her for outpatient treatment, family meeting with her brother who is her primary support, and discharge planning. She has demonstrated improvement in mood, resolution of psychotic symptoms and suicidal thoughts, and improved anxiety. She is eating and sleeping well, and taking medications. She is requesting discharge, and as she is no longer at acute risk of harm to herself, can be managed as an outpatie nt at this time. She does not have risk factors for harm to others. Male: No : Yes Do You Have Access To A Gun?: No Health Problems: No Mental Health Diagnoses: Yes Substance Use Disorders: No Previous Attempt: Yes Family History of Suicide: No Previous Psychiatric Hospitalization: No Hopelessness: No Smoker: No Protective Factors Assessment : No Responsible for Young Children: No Employed: No Supportive Family: Yes Tobacco Cessation at Discharge Tobacco Cessation Medication Prescribed at Discharge: Not Applicable/Non-Smoker Total Time Total Time Spent: Greater Than 30 Minutes Total Time Includes: Examination of the patient, Discharge Planning and Medicati on Reconciliation Discharge Data Lab Results 11/24/20 11/24/20 11/24/20 09:49 09:49 09:49 WBC 6.38 RBC 4.56 Hgb 14.1 Hct 40.6 MCV 89.0 MCH 30.9 MCHC 34.7 RDW Std Deviation 39.5 RDW Coeff of Daniel 12.3 Plt Count 253 MPV 9.8 Immature Gran % (Auto) 0.2 Neut % (Auto) 70.7 Lymph % (Auto) 21.5 Cocke % (Auto) 5.2 Eos % (Auto) 2.4 Baso % (Auto) 0.0 Neut # (Auto) 4.52 Lymph # (Auto) 1.37 Cocke # (Auto) 0.33 Eos # (Auto) 0.15 Baso # (Auto) 0.00 Immature Gran # (Auto) 0.01 Sodium 139 Potassium 3.1 L Chloride 105 Carbon Dioxide 25 Anion Gap 9.0 BUN 5 L Creatinine 0.56 L Est Cr Clr Drug Dosing 131.9 Est GFR ( Amer) 145.0 Est GFR (Non-Af Amer) 125.1 BUN/Creatinine Ratio 9.3 L Glucose 104 H Fasting Glucose Calcium 9.2 Total Bilirubin 0.8 AST 7 L ALT 18 Alkaline Phosphatase 35 L Total Protein 8.0 Albumin 4.6 Globulin 3.4 Albumin/Globulin Ratio 1.4 Triglycerides Cholesterol LDL Cholesterol, Calc VLDL Cholesterol, Calc HDL Cholesterol Cholesterol/HDL Ratio TSH 0.438 HCG, Qual Urine Color Urine Appearance Urine pH Ur Specific Renfrew Urine Protein Urine Glucose (UA) Urine Ketones Urine Blood Urine Nitrite Urine Bilirubin Urine Urobilinogen Ur Leukocyte Esterase Urine WBC (Auto) Urine RBC (Auto) U Hyaline Cast (Auto) U Epithel Cells (Auto) Urine Bacteria (Auto) Salicylates < 1.7 L Urine Opiates Screen Ur Methadone, Qual Acetaminophen < 2 L Urine Barbiturates Ur Phencyclidine (PCP) U Amphetamin/Meth Scrn MDMA (Ecstasy) Screen U Benzodiazepines Scrn Ur Cocaine Metabolite U Marijuana (THC) Screen Ethyl Alcohol mg/dL COVID-19 Eval Order SARS-CoV-2, RNA, NAAT 11/24/20 11/24/20 11/24/20 09:49 09:49 11:05 WBC RBC Hgb Hct MCV MCH MCHC RDW Std Deviation RDW Coeff of Daniel Plt Count MPV Immature Gran % (Auto) Neut % (Auto) Lymph % (Auto) Cocke % (Auto) Eos % (Auto) Baso % (Auto) Neut # (Auto) Lymph # (Auto) Cocke # (Auto) Eos # (Auto) Baso # (Auto) Immature Gran # (Auto) Sodium Potassium Chloride Carbon Dioxide Anion Gap BUN Creatinine Est Cr Clr Drug Dosing Est GFR ( Amer) Est GFR (Non-Af Amer) BUN/Creatinine Ratio Glucose Fasting Glucose Calcium Total Bilirubin AST ALT Alkaline Phosphatase Total Protein Albumin Globulin Albumin/Globulin Ratio Triglycerides Cholesterol LDL Cholesterol, Calc VLDL Cholesterol, Calc HDL Cholesterol Cholesterol/HDL Ratio TSH HCG, Qual Negative Urine Color Yellow Urine Appearance Clear Urine pH 7.5 Ur Specific Renfrew 1.011 Urine Protein Negative Urine Glucose (UA) Negative Urine Ketones 1+ H Urine Blood Trace H Urine Nitrite Negative Urine Bilirubin Negative Urine Urobilinogen Negative Ur Leukocyte Esterase 3+ H Urine WBC (Auto) 5-10 H Urine RBC (Auto) 10-30 H U Hyaline Cast (Auto) 1-5 U Epithel Cells (Auto) >30 H Urine Bacteria (Auto) Negative Salicylates Urine Opiates Screen Ur Methadone, Qual Acetaminophen Urine Barbiturates Ur Phencyclidine (PCP) U Amphetamin/Meth Scrn MDMA (Ecstasy) Screen U Benzodiazepines Scrn Ur Cocaine Metabolite U Marijuana (THC) Screen Ethyl Alcohol mg/dL < 3.0 COVID-19 Eval Order SARS-CoV-2, RNA, NAAT 11/24/20 11/24/20 11/24/20 11:05 12:57 12:57 WBC RBC Hgb Hct MCV MCH MCHC RDW Std Deviation RDW Coeff of Daniel Plt Count MPV Immature Gran % (Auto) Neut % (Auto) Lymph % (Auto) Cocke % (Auto) Eos % (Auto) Baso % (Auto) Neut # (Auto) Lymph # (Auto) Cocke # (Auto) Eos # (Auto) Baso # (Auto) Immature Gran # (Auto) Sodium Potassium Chloride Carbon Dioxide Anion Gap BUN Creatinine Est Cr Clr Drug Dosing Est GFR ( Amer) Est GFR (Non-Af Amer) BUN/Creatinine Ratio Glucose Fasting Glucose Calcium Total Bilirubin AST ALT Alkaline Phosphatase Total Protein Albumin Globulin Albumin/Globulin Ratio Triglycerides Cholesterol LDL Cholesterol, Calc VLDL Cholesterol, Calc HDL Cholesterol Cholesterol/HDL Ratio TSH HCG, Qual Urine Color Urine Appearance Urine pH Ur Specific Renfrew Urine Protein Urine Glucose (UA) Urine Ketones Urine Blood Urine Nitrite Urine Bilirubin Urine Urobilinogen Ur Leukocyte Esterase Urine WBC (Auto) Urine RBC (Auto) U Hyaline Cast (Auto) U Epithel Cells (Auto) Urine Bacteria (Auto) Salicylates Urine Opiates Screen Neg Ur Methadone, Qual Neg Acetaminophen Urine Barbiturates Neg Ur Phencyclidine (PCP) Neg U Amphetamin/Meth Scrn Neg MDMA (Ecstasy) Screen Neg U Benzodiazepines Scrn Neg Ur Cocaine Metabolite Neg U Marijuana (THC) Screen Neg Ethyl Alcohol mg/dL COVID-19 Eval [facility] SARS-CoV-2, RNA, NAAT NEGATIVE 11/26/20 08:21 WBC RBC Hgb Hct MCV MCH MCHC RDW Std Deviation RDW Coeff of Daniel Plt Count MPV Immature Gran % (Auto) Neut % (Auto) Lymph % (Auto) Cocke % (Auto) Eos % (Auto) Baso % (Auto) Neut # (Auto) Lymph # (Auto) Cocke # (Auto) Eos # (Auto) Baso # (Auto) Immature Gran # (Auto) Sodium Potassium 3.6 D Chloride Carbon Dioxide Anion Gap BUN Creatinine Est Cr Clr Drug Dosing Est GFR ( Amer) Est GFR (Non-Af Amer) BUN/Creatinine Ratio Glucose Fasting Glucose 101 H Calcium Total Bilirubin AST ALT Alkaline Phosphatase Total Protein Albumin Globulin Albumin/Globulin Ratio Triglycerides 42 Cholesterol 153 LDL Cholesterol, Calc 87 VLDL Cholesterol, Calc 8 HDL Cholesterol 58 Cholesterol/HDL Ratio 3 TSH HCG, Qual Urine Color Urine Appearance Urine pH Ur Specific Renfrew Urine Protein Urine Glucose (UA) Urine Ketones Urine Blood Urine Nitrite Urine Bilirubin Urine Urobilinogen Ur Leukocyte Esterase Urine WBC (Auto) Urine RBC (Auto) U Hyaline Cast (Auto) U Epithel Cells (Auto) Urine Bacteria (Auto) Salicylates Urine Opiates Screen Ur Methadone, Qual Acetaminophen Urine Barbiturates Ur Phencyclidine (PCP) U Amphetamin/Meth Scrn MDMA (Ecstasy) Screen U Benzodiazepines Scrn Ur Cocaine Metabolite U Marijuana (THC) Screen Ethyl Alcohol mg/dL COVID-19 Eval Order SARS-CoV-2, RNA, NAAT Hospital Course (1) Psychotic disorder: 11/25--Risks/benefits/alternatives reviewed re: Seroquel 50 mg po q6 hr prn and decide on hs dose depending on tolerability. They were really not able to process full consent at this time. Will address as status improved. They verbalized agreement to trial. metabolic labs in am. 11/26--agreed to increase Seroquel 100 mg po qhs. 11/27--continue Seroquel current dose. Patient's psychosis likely mood driven but differential includes first break, fact symptoms worsened on brief SSRI trial may suggest bipolar component. 11/28- Continue quetiapine at current dose of 100mg qHS - patient tolerating medication, but declining further increase. Perspective from this provider is a remarkable improvement in anxiety since our first and only previous meeting on 11/24. Pt continues to be a bit obsessive in her need to write down information, but does not demonstrate paranoia or delusions during our encounter. 11/29 -working diagnosis is MDD with psychosis, rule out primary thought disorde r, rule out bipolar disorder. Patient being discharged on quetiapine 100 mg at bedtime. She was unwilling for further titration given history of sensitivity to medications, but advised that medication may need to be titrated further based on her response. -Fasting labs for monitoring on atypical antipsychotic: 11/26/2020, FG 101, FLP normal. -Prescription for #30-day supply sent to [facility]. -Psychiatric follow-up arranged in [place]. (2) Anxiety: 11/24 - Admitted to a locked inpatient behavioral health unit, on q15 minute safety checks - Pt is declining trial of any psychotropic medications during this admission - will continue to offer education and encouragement - Encourage participation in group and recreational therapies - Gather collateral information from outpatient providers - Suggest phone meeting to involve outpatient supports in safety planning - Arrange appropriate aftercare 11/25--reviewed, is actually related to underlying psychosis/paranoia. Today the patient exhibits thought blocking, disorganized behavior on unit, and expresses multiple delusions including body control, persecutory delusions of poison, etc. 11/26--a bit calmer following 2 doses of Seroquel yesterday, still suspicious and misattributes paperwork and menu to delusional system. 11/27--dramatic improvement from 11/25. 11/28--Pt continues to demonstrate improvement in condition. Perspective from this provider is a remarkable improvement in anxiety since our first and only meeting on 11/24. Pt continues to be a bit obsessive with need to write down information, but does not demonstrate paranoia or delusions during our encounter. (3) Depression: 11/24 - Same as above; patient declining medications during her admission - Encourage participation in group and recreational programming - Encourage support meeting - likely with brother 11/25--reviewed. may need to delay d/c to brother as ongoing decompensation. 11/28 - Pt continues to demonstrate significant improvement in mood and anxiety - still requires that aftercare arrangements be made given transition back to [place]. Pt is hopeful for discharge tomorrow. (4) PTSD (post-traumatic stress disorder): 11/24 - Coping strategies at this time - though continue to encourage consideration of medications - Encourage continued outpatient therapy 11/25--reviewed, Reviewed with patient that this is beyond dissociation as they do not just believe that things are unreal, but list multiple unusual beliefs and things that are harmful to them as punishment for losing healing mcnair. (5) Hypokalemia: 11/24 - Potassium was 3.1 in the ED, repleted with 20mEq of potassium chloride - Monitor nutritional intake on the unit, consider repeat BMP if indicated 11/25--reviewed. 11/26--repeat 3.6. Mental Health & Subst Abuse Tx Psychiatrist Name of Psychiatrist: [facility] - Dr. Rosario Psychiatrist's Date of Appointment with Psychiatrist: 12/20/20 Time of Appointment with Psychiatrist: 9:10 a.m. (60 min appt) Psychiatric Appointment Comment: Telehealth - will email you new pt paperwork to complete prior to appt Therapist Name of Therapist: Carlo Therapist's Therapy Appointment Comment: Call to establish a therapist through this teledoc service Bus And Rail Operator Name of Bus And Rail Operator: none Post Discharge Appointments Primary Care Physician Name Of Family Doctor: LISETTE Negrete Primary Care Provider Appointment Comment: [facility] Smoking Cessation Counseling Tobacco Cessation Medication Prescribed at Discharge: Not Applicable/Non-Smoker Contact Information Discharge Discharge Address: [address] [place] [address] Discharge Plan Discharge Items Patient Disposition: Home - Self-Care Reason For Visit: MOOD DISORDER, NOS Discharge Diagnosis: Major depressive disorder, severe with psychosis EUSEBIO Condition on Discharge: Good Activity: Per Instructions section Non-emergency contact: Psychiatrist and Therapist Call non-emergency contact if: you have any medication questions and your symptoms worsen Follow-up/Referrals: [place],[facility] [Primary Care Provider] - Diet: Regular Addtl Attending Provider Instructions: SPECIAL CARE INSTRUCTIONS: 1. Follow through with your scheduled aftercare appointments. If unable to keep an appointment, please call to reschedule. 2. Take your medication only as prescribed. Medication should not be changed or stopped without the approval of your doctor. In the event of worsening symptoms or concerns about side effects, contact your doctor immediately. 3. Utilize new healthy coping skills, anger management skills, and stress management skills learned during your hospitalization. Journal feelings and process them with a support person. Identify stressors or situations that may result in relapse, deterioration or inappropriate behaviors and develop a plan to deal with those issues. 4. If your coping skills are ineffective and you are in crisis, contact your outpatient providers for direction. If unable to reach your providers, please call the [facility] CRISIS LINE AT , go to the [facility] walk-in center at [address], [address], [place], or go to the closest Emergency Room. 5. Avoid alcohol and un-prescribed drugs. 6. You have been provided with the Mental Health Advance Directives Pamphlet for your review. AFTERCARE APPOINTMENTS: * Please call your insurance company prior to your scheduled appointment to confirm your aftercare providers are covered. Take your insurance information to your appointments. WHO TO CALL AND WHEN: Medical Emergencies: For questions or emergencies related to your hospital stay, please contact the Inpatient Behavioral Health Unit at [phone]. A registered nurse bone marrow transplant is on-call 02/06 for the Behavioral Health Unit for emergencies At any time you feel your situation is an emergency, you may also call 911 immediately. Pending Studies at Discharge: No Stand-Alone Forms: My [facility], Smoking Cessation Medications and DC Order Prescriptions: New quetiapine 100 mg Tablet 100 mg PO HS Qty: 30 RF: 0 No Action No Known Home Medications RF: 0 Discharge Orders: Discharge Order (Routine); Ordered 11/29/20 Ordered By: Khloe Parmar Admission Data Admit Date/Time: 11/24/20 15:04 Attending Provider: Kandice Pride Admit Provider: Kandice Pride Primary Care Provider: [place],[facility] Other Interventions: Discharge Summary Assessment (RN) Last Done: 11/29/20 10:06 PSY Interdisciplinary Discharge Planning Last Done: 11/29/20 10:04 Coding Level of Care Code 17755 D/C day mgmt > 30 min Diagnoses Psychotic disorder F29 Anxiety F41.9 Depression F32.9 PTSD (post-traumatic stress disorder) F43.10 Hypokalemia E87.6
== END 2020-11-29 10:34 | disposition home or self-care (01) | DRG 885 ==
LOC: ED 08:56 → 3S 15:04